=== PATIENT | female | born 1960 | race Two or more races ===

== ENCOUNTER 2024-09-10 09:00 | Day surgery (SDC) | payer MEDICAID, SELFPAY ==
--- NOTE | 2024-09-09 10:04 | EKG_ITS ---
[facility] Test Date: 2024-09-09 Pat Name: FALGUNI TOMPKINS Department: Room: - Gender: Female Division Operations Specialist: GIOVANNI : 1960 Requested By: Nicolas Johnson Order Number: [id number] Reading MD: Nicolas Johnson Measurements Intervals [place] Rate: 76 P: 35 SD: 171 QRS: -9 QRSD: 78 T: 39 QT: 377 QTc: 426 Interpretive Statements SINUS RHYTHM LOW QRS VOLTAGE IN PRECORDIAL LEADS POSSIBLE ANTERIOR MYOCARDIAL INFARCTION , PROBABLY OLD INFERIOR MYOCARDIAL INFARCTION , PROBABLY OLD No previous ECG available for comparison /[id number]
[2024-09-09 11:40] VITALS: BMI 25.9
[2024-09-09 13:12] LABS: Basophils # (Auto) 0.1 Thou/mm3 (0.0-0.2); Basophils % (Auto) 1 % (0-2.5); Eosinophils # (Auto) 0.1 Thou/mm3 (0.0-0.5); Eosinophils % (Auto) 2 % (0-10); Hematocrit 40.4 % (36.0-46.0); Hemoglobin 13.1 g/dL (12.0-16.0); Immature Granulocytes % (Auto) 0 % (0-0); Immature Granulocytes Auto 0.02 Thou/mm3 (0.00-0.00); Lymphocytes # (Auto) 2.5 Thou/mm3 (1.0-4.8); Lymphocytes % (Auto) 41 % (10-50); Mean Corpuscular HGB Conc 32.4 g/dl (31.0-37.0); Mean Corpuscular Hemoglobin 28.4 pg (25.0-35.0); Mean Corpuscular Volume 88 fL (80-100); Monocytes # (Auto) 0.4 Thou/mm3 (0.0-0.8); Monocytes % (Auto) 7 % (0-12); Neutrophils # (Auto) 3.1 Thou/mm3 (1.8-7.7); Neutrophils % (Auto) 50 % (37-80); Nucleated Red Blood Cell % 0 /100 WBC (0); Platelet Count 191 Thou/mm3 (140-440); RDW Standard Deviation 43.4 fL (36.4-46.3); Red Blood Count 4.61 Miln/mm3 (4.00-5.20); White Blood Count 6.1 Thou/mm3 (3.6-11.0)
[2024-09-09 13:33] LABS: Alanine Aminotransferase 26 U/L (10-49); Albumin, Serum 4.5 gm/dL (3.4-4.8); Albumin/Globulin Ratio 1.8 (1.2-2.2); Alkaline Phosphatase 122 U/L (46-116); Anion Gap 10 (7-16); Aspartate Amino Transferase 18 U/L (0-34); BUN/Creatinine Ratio 23 Ratio (12-20); Bilirubin,Total 0.4 mg/dL (0.3-1.2); Blood Urea Nitrogen 16 mg/dL (9-23); Calcium 9.8 mg/dL (8.3-10.6); Calcium (Corrected) 9.8 mg/dL (8.5-10.1); Chloride 105 mMol/L (98-107); Creatinine (Component) 0.7 mg/dL (0.6-1.3); Estimated Creatinine Clearance 67.7 mL/min (>60); Globulin 2.5 gm/dL (2.3-3.5); Glucose 158 mg/dL (74-106); Osmolality,Calculated 285 (275-295); Potassium 4.2 mMol/L (3.4-5.1); Sodium 141 mMol/L (136-145); eGFR > 60 See Note
[2024-09-10] VITALS (9 sets, daily range): BP systolic 114–157; BP diastolic 56–73; PULSE 69–89; RESP 12–20; TEMP 36.4–36.9; O2SAT 95–100; BMI 25.6
--- NOTE | 2024-09-10 11:15 | SUR.PHASEI ---
1115 Patient arrived to recovery resting comfortably in [facility], on oxygen 8L via oxy mask with an oral airway in place, breathing unlabored, vital signs stable, dressing intact to abdomen; dermabond, no bleeding noted, lung sounds clear upon auscultation, bilateral radial pulses present when palpated, report received from Renan TORREZ/Connor TORREZ and Melvin DICKERSON
--- NOTE | 2024-09-10 12:08 | ESOP_ITS ---
Date of Procedure 09/10/24 Pre Op Diagnosis Symptomatic biliary dyskinesia Post Op Diagnosis Biliary dyskinesia Chronic cholecystitis Procedure Laparoscopic cholecystectomy Findings Moderately distended gallbladder with evidence of chronic cholecystitis Procedure Description Patient was brought into the operating room in supine position. After administration of general endotracheal anesthesia abdomen was prepped and draped in standard surgical manner. A Veress needle was inserted through the umbilicus and pneumoperitoneum was obtained up to 15 mmHg. The Veress needle was then removed, a 5 mm infraumbilical incision was made and the 5mm trocar was inserted. Laparoscopic camera was placed. Under direct visualization a laparoscopic camera a 10 mm trocar was placed in subxiphoid and two 5 mm trocars placed in right upper quadrant. The gallbladder was identified and was noted to be moderately distended with evidence of chronic cholecystitis. It was retracted cephalad and laterally. Dissection started near the infundibulum of gallbladder where cystic duct and gallbladder junction clearly identified. The cystic duct was circumferentially dissected off the peritoneum and surrounding inflammatory tissue. The critical view of safety was clearly demonstrated. Cystic duct was then divided between 2 endoclips proximally and one distally. The cystic artery was similarly dissected and divided. The gallbladder was then from the liver bed using electrocautery. The gallbladder was then placed inside an Endo Catch and removed from the abdomen utilizing subxiphoid trocar site. The area was copiously and thoroughly washed and irrigated, all the fluid was suctioned and the suction fluid returned clear. Hemostasis achieved using electrocautery. Endoclips noted be in place and intact without any bleeding or any leakage. Hemostasis was adequate and satisfactory. The subxiphoid trocar sites fascial defect was closed with 0 Vicryl using Endo Closure device. Instruments and trocars removed, pneumoperitoneum was evacuated and the incisions closed with 4-0 Monocryl in subcuticular fashion. Instrument needle and sponge counts were all reported to be correct X2. Patient tolerated the procedure well, was extubated, breathing spontaneously and without difficulty and was transferred to postanesthesia care in stable condition. Anesthesia GETA and local Pathology / specimen Other (Gallbladder) Estimated Blood Loss 10 Condition Stable Disposition PACU Surgeon Nicolas Johnson MD Surgical Staff Operation Date: 09/10/24 11:00 Case Staff BEREAVEMENT COORDINATOR: Ed Cruz RNbarrel rifler: Kayleigh Falk
--- NOTE | 2024-09-10 12:48 | SUR.PHASEII ---
1248 Patient meets discharge criteria from recovery, awake and alert, breathing unlabored, vital signs stable, denies pain, dressing intact; no bleeding noted, patienbt ate a jello and eating ice chips; tolerating well, denies nasuea, patient assisted with dressing into her clothing by this bid writer, discharge instructions given with the assistance of the telephone american sign language interpreter Corry ID#[id number] to patient and patients husbabnd, signed discharge instructions. Patient given all her belongings prior to discharge, transported via wheelchair and left in a private vehicle.
== END 2024-09-10 12:48 | disposition home or self-care (01) ==
PROVIDERS: PCP Nurse Practitioner Family; Referring Provider Surgery; Visit Provider Surgery
PROC: 0FT44ZZ Resection of Gallbladder, Percutaneous Endoscopic Approach (ICD-10-PCS; CPT 47562; principal; 2024-09-10 10:45)
DX: K82.8 Other specified diseases of gallbladder (principal); K81.1 Chronic cholecystitis; Z01.810 Encounter for preprocedural cardiovascular examination
CPT/HCPCS: 47562; 36415; 80053; 85025; 93005; A4217; A4649; J0694; J1100; J1885; J2250; J2405; J2704; J3010; J3490